=== PATIENT | male | born 1985 | race Caucasian/White ===

== ENCOUNTER 2017-10-02 08:35 | Emergency (ER) | payer MEDICAID ==
[~2017-10-02] VITALS: Ht 175.3 cm; Wt 108.1 kg
[2017-10-02 08:41] VITALS: Ht 175.3 cm; Wt 108.1 kg
[2017-10-02 10:19] VITALS: BP 140/74
== END 2017-10-02 10:19 | disposition home or self-care (01) ==
LOC: ED 08:35
DX: G89.29 Other chronic pain (principal); M54.9 Dorsalgia, unspecified; S20.211A Contusion of right front wall of thorax, initial encounter; X58.XXXA Exposure to other specified factors, initial encounter; Y93.89 Activity, other specified; Y92.89 Other specified places as the place of occurrence of the external cause; Y99.8 Other external cause status